=== PATIENT | female | born 1980 ===

== ENCOUNTER → 2023-07-24 12:57 | Outpatient (CLI) | payer OTHER, SELFPAY ==
--- NOTE | ~2023-07-24 | MR_ITS ---
MRI of the left shoulder Technique: Axial proton-density fat-sat images, coronal proton density fat-sat and T2 fat-sat images, and sagittal T1-weighted and T2 fat-sat images were acquired. Clinical History: Rotator cuff tear Findings: There is [id number] AC joint degenerative change, with subacromial spur present. Melissa coclavicular, coracoacromial, and coracohumeral ligaments appear intact. Supraspinatus and infraspinatus tendons are intact, without partial or full-thickness tear. There is downsloping of the acromion with possible mild impingement of the distal supraspinatus tendon. Subsca pularis tendon is intact with mild tendinosis. Tendon of the long head of the biceps is intact. No definite labral tear identified. Inferior glenohumeral ligament is intact. There is minimal glenohumeral joint effusion. No degenerati ve change present. No fluid distention of the subacromial/subdeltoid bursa. No muscle atrophy or anna a. Impression: Minimal rotator cuff tendinosis. Moderate AC joint degenerative change with possible impingement of the distal supraspinatus tendon. Reviewed, dictated and finalized at location . [employer] Impression: Minimal rotator cuff tendinosis. Moderate AC joint degenerative change with possible impingement of the distal s upraspinatus tendon.
== END ==
PROVIDERS: Visit Provider Orthopaedic Surgery
DX: S46.012A Strain of muscle(s) and tendon(s) of the rotator cuff of left shoulder, initial encounter (principal); M75.22 Bicipital tendinitis, left shoulder; X58.XXXA Exposure to other specified factors, initial encounter; M19.011 Primary osteoarthritis, right shoulder
CPT/HCPCS: 73221